=== PATIENT | female | born 1990 | race Caucasian/White ===

== ENCOUNTER → 2018-04-15 | Outpatient (CLI) | payer OTHER | LOC: M LRY 17:03 | DX: M79.632 Pain in left forearm (principal); M79.642 Pain in left hand | CPT/HCPCS: 73090 ==

== ENCOUNTER 2020-02-25 23:27 | Emergency (ER) | payer OTHER ==
[~2020-02-25] VITALS: Ht 177.8 cm; Wt 118.2 kg
[2020-02-25] MEDS ORDERED: BUSP5TA (23:40)
[2020-02-25] MEDS ORDERED: TOPI25TA10 (23:40)
[2020-02-25] MEDS ORDERED: ALBU8.5H (23:40)
[2020-02-25] MEDS ORDERED: CHAN1PAK11 (23:40)
[2020-02-25] MEDS ORDERED: ALL10TAB29 (23:40)
[2020-02-25] MEDS ORDERED: ACET1TAB55 PO (23:40)
[2020-02-25] MEDS ORDERED: ESCI20TA (23:40)
[2020-02-25] MEDS ORDERED: MONT10TA4 (23:40)
[2020-02-25] MEDS ORDERED: LORY1TAB2 (23:40)
[2020-02-26] MEDS ORDERED: KETOROLAC TROMETHAMINE 10 MG TAB PO ONE (00:30)
[2020-02-26 00:44] LABS: BASO % 0.4 % (0.0-1.0); EOS # 0.3 10^3/uL (0.0-0.5); EOS % 3.8 % (0.0-3.0); HEMATOCRIT 40.9 % (36.0-47.0); HEMOGLOBIN 13.6 g/dl (12.0-15.5); LYMPH # 2.6 10^3/uL (1.5-5.0); MEAN CORPUSCULAR HEMOGLOBIN 28.8 pg (27.0-33.0); MEAN CORPUSCULAR HGB CONC 33.3 g/dl (32.0-36.5); MEAN CORPUSCULAR VOLUME 86.7 fl (80.0-96.0); MONO # 0.6 10^3/uL (0.0-0.8); NEUTROPHILS # 4.4 10^3/uL (1.5-8.5); NEUTROPHILS % 54.5 % (36.0-66.0); PLATELET COUNT, AUTOMATED 237 10^3/uL (150-450); RED BLOOD COUNT 4.72 10^6/uL (4.00-5.40)
[2020-02-26 01:03] LABS: C REACTIVE PROTEIN QUANTITATIV 0.41 MG/DL (0.00-0.30)
[2020-02-26 01:30] LABS: ERYTHROCYTE SEDIMENTATION RATE 11 mm/hr (0-20)
[2020-02-26 01:57] VITALS: BP 144/79
--- NOTE | 2020-02-26 14:39 | REP ---
Four views left ankle: 02/25/2020. Indication: Pain following injury. Findings: There is no acute fracture, subluxation or dislocation. No lytic or blastic lesions are present. Bony alignment is anatomic. Impression: No acute fracture. Electronically Signed by Artemio Jackson DO 02/26/2020 02:31 P
== END 2020-02-26 01:59 | disposition home or self-care (01) ==
LOC: M ED 23:27
DX: S93.402A Sprain of unspecified ligament of left ankle, initial encounter (principal); J45.909 Unspecified asthma, uncomplicated; Z79.51 Long term (current) use of inhaled steroids; Z79.899 Other long term (current) drug therapy; Z87.442 Personal history of urinary calculi; Y92.9 Unspecified place or not applicable; Y93.9 Activity, unspecified; Y99.9 Unspecified external cause status